=== PATIENT | male | born 1960 | race Caucasian/White ===

== ENCOUNTER 2018-12-29 20:07 | Emergency (ER) | payer SELFPAY ==
[2018-12-29] MEDS ORDERED: Cyclobenzaprine 10 MG Tab PO ONE ×2 (20:08→20:49)
[2018-12-29] MEDS ORDERED: Acetaminophen/HYDROcodone 325-5 MG Tab PO ONE (20:48)
--- NOTE | 2018-12-29 20:52 | EDM.PDOC ---
ED HPI GENERAL MEDICAL PROBLEM - General Chief Complaint: Back Pain or Injury Stated Complaint: BACK PAIN Time Seen by Provider: 12/29/18 20:40 Source of Information: Reports: Patient, Family, Old Records History Limitations: Reports: No Limitations - History of Present Illness INITIAL COMMENTS - FREE TEXT/NARRATIVE: Nir comes into [facility] ED with R lower back spasms over the past 30 hrs. They occurred while sitting in a chair yesterday pm, and have been persistent. Pain is nonradiating, not associated with GI or Gu sxs, or rash. There is no PMH of back injury. 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 He has taken no analgesic meds this pm. Treatments TUBE MAN: Reports: Acetaminophen, NSAIDS R lower back Pain Score (Numeric/FACES): 7 - Related Data Allergies Allergy/AdvReac Type Severity Reaction Status Date / Time No Known Allergies Allergy Verified 12/29/18 20:08 Home Meds: Home Meds Metoprolol Succinate 200 mg PO DAILY 12/29/18 [History] amLODIPine Besylate [Norvasc] 10 mg PO DAILY 12/29/18 [History] Past Medical History Cardiovascular History: Reports: High Cholesterol, Hypertension, Stents Genitourinary History: Reports: Acute Renal Failure, Renal Disease Musculoskeletal History: Reports: Gout, Other (See Below) Other Musculoskeletal History: gouty arthritis Neurological History: Reports: Migraines Endocrine/Metabolic History: Reports: Obesity/BMI 30+, Other (See Below) Other Endocrine/Metabolic History: borderline DM Immunologic History: Reports: Other (See Below) Other Immunologic History: lymes disease - Infectious Disease History Infectious Disease History: Reports: Chicken Pox, Mumps - Past Surgical History Cardiovascular Surgical History: Reports: Carotid Stents Other Cardiovascular Surgeries/Procedures: stent x 1 Social & Family History - Family History Family Medical History: Noncontributory - Tobacco Use Smoking Status *Q: Never Smoker - Caffeine Use Caffeine Use: Reports: Coffee - Recreational Drug Use Recreational Drug Use: Yes ED ROS GENERAL - Review of Systems Review Of Systems: ROS reveals no pertinent complaints other than HPI. ED EXAM,LOWER BACK PAIN/INJURY - Physical Exam Exam: See Below Exam Limited By: No Limitations General Appearance: Alert, WD/WN, Anxious, Moderate Distress, Obese Eye Exam: Bilateral Eye: EOMI, Normal Inspection, PERRL Ears: Normal External Exam Nose: Normal Inspection Throat/Mouth: Normal Inspection Head: Normocephalic Neck: Normal Inspection, Supple, Non-Tender, Full Range of Motion Respiratory/Chest: Lungs Clear Cardiovascular: Regular Rate, Rhythm, No Murmur GI/Abdominal: Normal Bowel Sounds, Soft, Non-Tender, No Organomegaly, No Distention, No Mass (Male) Exam: Deferred Rectal (Males) Exam: Deferred Back Exam: Normal Inspection, Decreased Range of Motion, Muscle Spasm (R lower back) Extremities: Limited Range of Motion (R wrist, with small effusion, no erythema) Neurological: Alert, Normal Mood/Affect, Normal Dorsiflexion, CN II-XII Intact, No Motor/Sensory Deficits, Oriented x 3 Psychiatric: Normal Affect, Anxious Skin Exam: Warm, Dry, Intact, Normal Color, No Rash Lymphatic: No Adenopathy Course - Vital Signs Text/Narrative:: Following assessment, I administered Hydrocodone 5 mg and Flexeril 10 mg po, with significant reduction in pain and stiffness. Last Recorded V/S: Last Vital Signs Temp 36.7 C 12/29/18 20:07 Pulse 88 12/29/18 20:07 Resp 20 12/29/18 20:07 BP 171/89 H 12/29/18 20:07 Pulse Ox 98 12/29/18 20:07 - Orders/Labs/Meds Meds: Medications Discontinued Medications Generic Name Dose Route Start Last Admin Trade Name Rashadq PRN Reason Stop Dose Admin Hydrocodone Bitart/Acetaminophen 1 tab 12/29/18 20:48 12/29/18 20:55 [employer] [place] 325-5 Mg PO 12/29/18 20:49 1 tab ONETIME ONE Administration Cyclobenzaprine HCl 10 mg 12/29/18 20:49 12/29/18 20:54 Flexeril PO 12/29/18 20:50 10 mg ONETIME ONE Administration Departure - Departure Time of Disposition: 22:30 Disposition: Home, Self-Care 01 Condition: Fair Clinical Impression: Low back pain Qualifiers: Chronicity: acute Back pain laterality: right Sciatica presence: without sciatica Qualified Code(s): M54.5 - Low back pain - Discharge Information *PRESCRIPTION DRUG MONITORING PROGRAM REVIEWED*: Not Applicable *COPY OF PRESCRIPTION DRUG MONITORING REPORT IN PATIENT ROSALIO: Not Applicable Instructions: Acetaminophen; Hydrocodone tablets or capsules, Cyclobenzaprine tablets, Acute Back Pain, Adult Referrals: Jef Crawford MD [Primary Care Provider] - Forms: ED Department Discharge Additional Instructions: Activity as tolerated. Ice to back for 20-30 minutes 4-6 times daily. Flexeril 10mg 1 tablet 3 times a day as needed for back spasms. Tylenol 1000mg 3 times a day as needed for pain. Follow up with regular MD at clinic if no improvement. - Problem List & Annotations (1) Low back pain SNOMED Code(s): 614117834 Code(s): M54.5 - LOW BACK PAIN Status: Acute Current Visit: Yes Annotation/Comment:: I dispensed Flexeril 10 mg tabs tid prn for spasms, and suggested Tylenol for pain in interim. Qualifiers: Chronicity: acute Back pain laterality: right Sciatica presence: without sciatica Qualified Code(s): M54.5 - Low back pain - Problem List Review Problem List Initiated/Reviewed/Updated: Yes - Assessment/Plan Plan: Follow up with PCP tomorrow.
== END 2018-12-29 22:38 | disposition home or self-care (01) ==
LOC: FB.ED 20:07
DX: M54.5 Low back pain (principal); I10 Essential (primary) hypertension; E66.9 Obesity, unspecified; Z68.30 Body mass index [BMI] 30.0-30.9, adult; Z79.899 Other long term (current) drug therapy
CPT/HCPCS: 99283; A9270

== ENCOUNTER → 2019-03-06 | Outpatient (CLI) | payer SELFPAY | LOC: FB.LABRIV 04:39 | PROVIDERS: ATTEND Internal Medicine | DX: I38 Endocarditis, valve unspecified (principal) | CPT/HCPCS: 36415; 80202; 82565 ==

== ENCOUNTER → 2019-03-08 | Outpatient (CLI) | payer SELFPAY | LOC: FB.LABRIV 04:07 | PROVIDERS: ATTEND Internal Medicine | DX: I38 Endocarditis, valve unspecified (principal) | CPT/HCPCS: 36415; 85025; 86140 ==

== ENCOUNTER → 2019-03-09 | Outpatient (CLI) | payer SELFPAY | LOC: FB.LABRIV 04:49 | PROVIDERS: ATTEND Internal Medicine | DX: I38 Endocarditis, valve unspecified (principal) ==

== ENCOUNTER 2024-04-11 21:24 | Emergency (ER) | payer BC, MEDICAID ==
[2024-04-11] MEDS: Aspirin 81 MG Tab.Chew PO ONE (21:34)
[2024-04-11] MEDS: Sodium Chloride 0.9% 10 ML Syringe FLUSH PRN (21:35)
[2024-04-11] MEDS: Nitroglycerin 0.4 MG Tab.SL SL PRN (21:38)
[2024-04-11 21:41] LABS: HEMOGLOBIN 13.8 g/dL (12.9-17.7); MEAN CORPUSCULAR HEMOGLOBIN 30.2 pg (27.0-33.3); MEAN CORPUSCULAR HGB CONC 33.7 g/dL (28.7-35.3); MEAN CORPUSCULAR VOLUME 89.4 fL (80.8-98.7); MEAN PLATELET VOLUME 9.2 fL (6.7-11.0); PLATELET COUNT,PLT 276 x10(3)uL (117-477); RED BLOOD CELL COUNT 4.58 x10(6)uL (3.90-5.90); RED CELL DISTRIBUTION WIDTH 13.8 % (12.4-15.0); WHITE BLOOD CELL COUNT,WBC 15.3 x10-3/uL (3.2-10.1)
[2024-04-11 21:50] LABS: INR 0.88 (1.00-1.24); PROTHROMBIN TIME 9.3 sec (9.0-11.1)
[2024-04-11 21:53] LABS: A/G RATIO 0.8; ALANINE AMINOTRANSFERASE,ALT 47 U/L (12-36); ALBUMIN 3.5 g/dL (3.2-4.6); ALKALINE PHOSPHATASE 98 IU/L (56-112); ASPARTATE AMNIOTRANSFERASE,AST 12 IU/L (5-25); BILIRUBIN TOTAL 0.1 mg/dL (0.1-1.3); BLOOD UREA NITROGEN,BUN 39 mg/dL (7-18); BUN/CREATININE RATIO 12.6 (9-20); CARBON DIOXIDE,CO2 21 mmol/L (21-32); CHLORIDE,CL 102 mmol/L (100-110); EST CRCL DRUG DOSING (CG) 25.18 mL/min; ESTIMATED GFR 22 mL/min (>60); GLUCOSE RANDOM 365 mg/dL (80-116); POTASSIUM,K 4.4 mmol/L (3.5-5.3); PROTEIN TOTAL,TP 7.8 g/dL (6.0-8.0); SODIUM,NA 138 mmol/L (135-145)
[2024-04-11 21:54] LABS: EOSINOPHILS PERCENT MAN 5 % (0-5); LYMPHOCYTES PERCENT MAN 32 % (13-37); MONOCYTES PERCENT MAN 13 % (4-12); SEG NEUTROPHILS PERCENT MAN 50 % (46-82)
[2024-04-11 21:59] LABS: CREATININE 3.1 mg/dL (0.70-1.30)
[2024-04-11] MEDS: Heparin Sodium/0.45% NaCl 500 ML IV SCH (22:28)
[2024-04-11] MEDS: Heparin Sodium 5,000 Units/ML Vial IV ONE (22:29)
[2024-04-11] MEDS: Morphine 2 MG/ML SYRINGE IVPUSH ONE (22:37)
[2024-04-11] MEDS: Ticagrelor 90 MG Tab PO ONE (22:41)
== END 2024-04-11 22:40 ==
LOC: FB.ED 21:24
DX: I21.3 ST elevation (STEMI) myocardial infarction of unspecified site (principal); J98.11 Atelectasis; I10 Essential (primary) hypertension; E66.9 Obesity, unspecified; Z79.899 Other long term (current) drug therapy; Z68.41 Body mass index [BMI] 40.0-44.9, adult
CPT/HCPCS: 36415; 71045; 80053; 84484; 85025; 85610; 85730; 93005; 96374; 96375; 99285; A9270; J1644; J2270